=== PATIENT | female | born 1965 | race Caucasian/White ===

== ENCOUNTER 2025-08-06 23:05 | Emergency (ER) | payer BC ==
[~2025-08-06] VITALS: Ht 165.1 cm; Wt 61.2 kg
[2025-08-07 00:29] LABS: *BILIRUBIN,URIN NEGATIVE (NEGATIVE); *BLOOD, URINE NEGATIVE (NEGATIVE); *CLARITY,URINE CLEAR (CLEAR); *COLOR,URINE YELLOW (YELLOW); *KETONES,URINE NEGATIVE (NEGATIVE); *PROTEIN,URINE NEGATIVE (NEGATIVE); *UROBILINOGEN,URINE 0.2 E.U./dl (NORMAL); LEUKOCYTE ESTERASE ,URINE NEGATIVE (NEGATIVE); NITRITE, URINE NEGATIVE (NEGATIVE); UGLUCOSE NEGATIVE (NEGATIVE)
[2025-08-07 00:34] LABS: PLATELET COUNT (AUTO) 192 K/uL (179-408); RED BLOOD CELL COUNT(AUTO) 4.47 MIL/uL (3.63-4.92); RED CELL DISTRIBUTION WIDTH 13.7 % (12.3-17.7); WHITE BLOOD COUNT (AUTO) 5.9 K/uL (3.8-11.8)
[2025-08-07] MEDS ORDERED: IBUPROFEN 800 MG TABLET ONE (00:37)
[2025-08-07] MEDS: IBUPROFEN 800 MG TABLET PO ONE (00:41)
[2025-08-07 00:51] LABS: ASPARTATE AMINOTRANSFERASE 16 U/L (15-37); CREATININE 0.8 mg/dL (0.6-1.3); SODIUM SERUM 143 mmol/L (136-145); TOTAL PROTEIN, SERUM 7.0 g/dL (6.4-8.2); UREA NITROGEN, BLOOD 7 mg/dL (7-18)
[2025-08-07] MEDS: POTASSIUM CHLORIDE 20 MEQ TAB.PRT.SR PO ONE (02:18)
[2025-08-07] MEDS ORDERED: POTASSIUM CHLORIDE 10 MEQ TAB.PRT.SR ONE (02:50)
[2025-08-07] MEDS ORDERED: VALA100026 PO (02:58)
[2025-08-07 03:00] VITALS: BP 126/67
[2025-08-07 03:09] VITALS: BP 125/69; TEMP 98.1; O2SAT 98
== END 2025-08-07 03:10 | disposition home or self-care (01) ==
LOC: ER 23:05
DX: K76.89 Other specified diseases of liver (principal); R10.11 Right upper quadrant pain; Z79.624 Long term (current) use of inhibitors of nucleotide synthesis; Z88.1 Allergy status to other antibiotic agents; Z88.2 Allergy status to sulfonamides
CPT/HCPCS: 36415; 83690; 85025; A4606; A4663